=== PATIENT | female | born 1990 | race African-American/Black ===

== ENCOUNTER 2016-12-06 23:23 | Emergency (ER) | payer OTHER ==
[~2016-12-06] VITALS: Ht 165.1 cm; Wt 75.1 kg
[~2016-12-06 23:23] MED LIST: BIOT1CAP8 PO; CALC-51 PO; MISCCAP80 PO; MULT-506 PO; OMEG10007 PO
[2016-12-06 23:42] VITALS: TEMP 36.4; Ht 165.1 cm; Wt 75.1 kg
[2016-12-06] MEDS ORDERED: PSEUDOEPHEDRINE HCL 30 MG TAB PO STA (23:59)
[2016-12-07] MEDS ORDERED: DEXAMETHASONE SOD INJ 10 MG/ML VIAL PO ONE
[2016-12-07] MEDS ORDERED: OXYMETAZOLINE HCL 0.05% NA SPR 15 ML BTL ONE
[2016-12-07] MEDS ORDERED: FOLI1TAB7 PO (00:05)
[2016-12-07] MEDS ORDERED: BETA2500 PO (00:05)
[2016-12-07] MEDS ORDERED: ZINC30TA3 PO (00:05)
[2016-12-07] MEDS ORDERED: PRED50TA PO (00:08)
[2016-12-07] MEDS ORDERED: DOXY100C2 PO (00:08)
[2016-12-07 00:21] VITALS: BP 113/73; PULSE 87; O2SAT 98
--- NOTE | 2016-12-07 02:46 | EMERGENCY ROOM VISIT NOTE ---
History First contact with patient: 23:47 Chief Complaint: SINUS CONGESTION/PRESSURE Stated Complaint: SINUS DRAINAGE, SNEEZING, COUGH, SEVERE HEADACHE Nursing Triage Summary: Patient reports sinus congestion, cough, sneezing, and headache for 3-4 days. Patient states "I think it's a sinus infection." History of Present Illness The patient is a 26 year old female who presents to the Emergency Room with complaints of sinus pain and congestion with sinus headache and fever and chills with coughing for the past several days. No temperature was taken. Patient had sinus infections before and symptoms feel similar. Patient denies chest pain, dyspnea, neck stiffness, sore throat, abdominal pain, vomiting, diarrhea. She gets a rash from penicillin. No recent travel. Review of Systems See HPI for pertinent positives & negatives. A total of 10 systems reviewed and were otherwise negative. Past Medical/Surgical History Medical Problems: (1) No significant past medical history Surgical Problems: (1) No history of previous surgery Family History FH: diabetes mellitus FH: heart disease FH: hypertension Social History Smoking Status: Never Smoker Smokeless Tobacco Use: No Alcohol Use: occasionally Drug Use: none Marital Status: single Housing Status: lives with roommate Occupation Status: employed, [employer] student Current/Historical Medications Scheduled Beta Carotene (Beta Carotene), 1 CAP PO DAILY Doxycycline Hyclate (Vibramycin), 100 MG PO BID Folic Acid (Folvite), 1 MG PO DAILY Prednisone (Prednisone), 50 MG PO DAILY Probiotic Product (Probiotic), 1 CAP PO DAILY Zinc Gluconate (Zinc), 1 TAB PO DAILY Physical Exam Vital Signs Date Time Temp Pulse Resp B/P (MAP) Pulse Ox O2 Delivery O2 Flow Rate FiO2 12/07/16 00:21 87 18 113/73 98 12/06/16 23:42 36.4 87 18 111/78 99 Room Air Pain Rating (0-10): 0 Physical Exam VITALS: Vitals are noted on the nurse's note and reviewed by myself. Vital signs stable. GENERAL: Pleasant female, in no acute distress, nondiaphoretic, well-developed well-nourished. SKIN: The skin was without rashes, erythema, edema, or bruising. There is no tenting of the skin. Capillary reflex less than 2 seconds. HEAD: Normocephalic atraumatic. EARS: External auditory canals clear, tympanic membranes pearly horner without erythema or effusion bilaterally. EYES: Pupils equal round and reactive to light and accommodation. Conjunctivae without injection, sclerae without icterus. Extraocular movements intact. NOSE: Patent, turbinates without inflammation or discharge. Bilateral maxillary sinus tenderness. MOUTH: Mucous membranes moist. Pharynx without erythema or exudate. Uvula midline. Airway patent. Tongue does not deviate. NECK: Supple without nuchal rigidity. No lymphadenopathy. No thyromegaly. Cervical spine is nontender. No JVD. No meningeal signs HEART: Regular rate and rhythm without murmurs gallops or rubs. LUNGS: Clear to auscultation bilaterally without wheezes, rales or rhonchi. No dullness to percussion. No retractions or accessory muscle use. ABDOMEN: Positive bowel sounds x 4. Normal tympanic percussion. Soft, nontender, without masses or organomegaly. Duran sign negative. No guarding or rebound tenderness. MUSCULOSKELETAL: No muscle atrophy, erythema, or edema noted. NEURO: Patient was alert and oriented to person place and time. Normal sensation to light and sharp touch. No focal neurological deficits. Medical Decision & Procedures Medications Administered Medications (Trade) Dose Ordered Sig/Shane Route Start Time Stop Time Status Last Admin Dose Admin Dexamethasone Sodium Phosphate (Decadron Inj) 10 mg NOW ONCE PO 12/07/16 00:00 12/07/16 00:01 DC 12/07/16 00:16 10 MG Pseudoephedrine HCl (Sudafed Tab) 60 mg NOW STAT PO 12/06/16 23:59 12/07/16 00:01 DC 12/07/16 00:16 60 MG Oxymetazoline HCl (Afrin 0.05% Nasal [place]) 1 sprays NOW ONCE NA 12/07/16 00:00 12/07/16 00:01 DC 12/07/16 00:16 1 SPRAYS ED Course Prior records/ancillary studies reviewed. Triage Nursing notes reviewed. The patient's history was concerning for a cold symptoms Differential diagnosis: Etiologies such as sinusitis, viral syndrome, tonsillitis, streptococcal pharyngitis, mononucleosis, peritonsillar abscess, retropharyngeal abscess, otitis, pneumonia, influenza, as well as others were entertained. ER treatment provided: Decadron, Sudafed, Afrin On reassessment the patient felt better. Diagnostics interpreted by me: Deferred This appears to be consistent with acute sinusitis. she was started on antibiotics and symptoms have been persisting for nearly a week. She is advised to take decongestants and medications as directed. She is advised to follow-up health services in a few days or here in the ER sooner for headache, neck stiffness, lethargy, worsening signs or symptoms or as needed. By the evaluation outlined above emergent etiologies such as peritonsillar abscess, retropharyngeal abscess, otitis, pneumonia, meningitis, urinary tract infection , sepsis, bacteremia, as well as others were deemed relatively unlikely. The pt informed about the findings as listed above. All questions were answered and pleased with the treatment. Return instructions were outlined and the patient was discharged in stable condition. Outpatient prescription management: Doxycycline, prednisone Referral: The patient was referred back to their primary care physician for follow-up in 2 to 3 days for a recheck of the current condition. Medical Decision As above Medication Reconcilliation Current Medication List: was personally reviewed by me Blood Pressure Screening Patient's blood pressure: Normal blood pressure Impression Primary Impression: Sinusitis, acute maxillary Departure Information Dispostion Home / Self-Care Condition GOOD Prescriptions Prednisone (Prednisone) 50 Mg Tab 50 MG PO DAILY for 4 Days, #4 TAB Prov: Rae Tam .LAKSHMI 12/07/16 Doxycycline Hyclate (VIBRAMYCIN) 100 Mg Cap 100 MG PO BID for 10 Days, #20 CAP Prov: Rae Tam PA-C 12/07/16 Referrals No Doctor, Assigned [facility] (PCP) Forms WORK / SCHOOL INSTRUCTIONS, HOME CARE DOCUMENTATION FORM, Days off school: 2 School Instructions, IMPORTANT VISIT INFORMATION Patient Instructions Sinusitis Acute, My [facility] Additional Instructions Doxycycline 100mg: Take one pill twice daily for 10 days for your infection. Take with food, but avoid dairy. Avoid prolonged sun exposure since this medication makes you temporarily more susceptible to sunburns. All antibiotics can cause diarrhea. If this occurs and you feel worse or it does not resolve in 1-2 days follow up with your doctor or return to the Emergency Department as this could be signs of serious underlying problems. Any medication can cause an allergic reaction, stop the pills immediately and return to the ER for rash, hives, breathing difficulties, or swelling. Acetaminophen(Tylenol) may be used for fever or pain. Use 1000mg every six hours as needed. Avoid using more than 3000mg in a 24 hour period. (AND/OR) Ibuprofen(Motrin, Advil) may be used for fever or pain. Use 600mg every six hours as needed. Take with food. Avoid using more than 2400mg in a 24 hour period. Do not use 2400mg per day for more than three consecutive days without physician direction. Prolonged inappropriate use can lead to stomach upset or ulcers. Afrin nasal spray: 2-3 sprays to each nostril twice daily as needed for congestion. Do not use for more than 3-4 days because it can lead to worsening rebound congestion. Pseudoephedrine(Sudaphed): 30-60mg every 6 hours as needed for nasal congestion. Do not take this with other stimulant products or supplements. Rest and drink plenty of fluids. Controlling your fever with Tylenol and Ibuprofen as above will make you feel better. Wash your hands after nose blowing, sneezing, or coughing. Most germs are spread through contact, therefore improper hygiene may result in your close contacts and loved ones becoming ill just like you. Continue current medications. Return to the ER for severe headache, neck stiffness, chest pain, difficulty breathing, fevers, vomiting, worsening of your condition, or as needed. Follow up with your primary physician this week for a recheck of your current condition. Problem Qualifiers Primary Impression: Sinusitis, acute maxillary Recurrence: not specified as recurrent Qualified Codes: J01.00 - Acute maxillary sinusitis, unspecified
== END 2016-12-07 00:20 | disposition home or self-care (01) ==
LOC: C.EDB 12-07 00:05
DX: J01.00 Acute maxillary sinusitis, unspecified (principal); Z83.3 Family history of diabetes mellitus; Z82.49 Family history of ischemic heart disease and other diseases of the circulatory system; Z79.899 Other long term (current) drug therapy

== ENCOUNTER 2017-01-20 11:23 | Emergency (ER) | payer OTHER ==
[~2017-01-20] VITALS: Ht 165.1 cm; Wt 73.7 kg
[~2017-01-20 11:23] MED LIST changes: +BETA2500 PO; -BIOT1CAP8 PO; -CALC-51 PO; +DOXY100C2 PO; +FOLI1TAB7 PO; -MULT-506 PO; -OMEG10007 PO; +ZINC30TA3 PO
[2017-01-20 11:30] VITALS: TEMP 36.9; Ht 165.1 cm; Wt 73.7 kg
[2017-01-20] MEDS ORDERED: CLIN300C10 PO (12:50)
[2017-01-20 12:58] VITALS: BP 106/89; PULSE 57; O2SAT 98
--- NOTE | 2017-01-20 20:31 | EMERGENCY ROOM VISIT NOTE ---
ED Visit Note First contact with patient: 11:41 Chief Complaint: I'm having a sore throat. History of Present Illness: Ms. Weems is a 26-year-old black female who ambulates into the ED complaining of throat pain. Patient reports approximately 1.5 months ago she was diagnosed with maxillary sinusitis and finished a 10 day course of doxycycline. She goes on to report that last week she personally removed a "tonsil stone" from her left tonsil and that a coworker was recently diagnosed with strep throat. Patient reports for the last 3-4 days she has been having a gradual onset of throat pain. She reports initially it was mild. She describes her discomfort at rest as a mild achiness but become sharp with swallowing. She rates her discomfort 6/10. Her pain is nonradiating. Her pain worsens with swallowing. She has not identified any alleviating factors related to the pain. She has been using achz-lgz-[id number] medications irregularly with minimal relief of her discomfort. Associated with her pain she reports she's been having intermittent headaches but does not have a headache now, she has been nauseated but has not vomited, she is having painful swallowing, nonproductive cough, and at night her discomfort increases when she is trying to sleep and she has difficulty sleeping. She denies any associated fevers, chills, sweats, skin eruptions, skin color changes, dizziness, lightheadedness, visual changes, hearing changes, ear drainage, eye drainage, voice changes, difficulty speaking, difficulty swallowing, drooling, painful talking, neck pain/stiffness, shortness of breath , wheezing, abdominal pain, decreased appetite, joint pain/swelling. Review of Systems: As noted above in history of present illness. All body systems were reviewed and found to be negative as noted above. Past Medical History: As previously noted, unspecified skin disease. Current Medications: Probiotic, folate, beta-carotene, zinc. Allergies to Medications: Latex, penicillin. 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 Physical Examination: Vital Signs: Date Time Temp Pulse Resp B/P (MAP) Pulse Ox O2 Delivery O2 Flow Rate FiO2 01/20/17 12:58 57 16 106/89 98 01/20/17 11:30 36.9 58 18 105/62 97 Room Air GENERAL: 26-year-old female in mild distress due to pain, nontoxic-appearing, afebrile and hemodynamically stable. NEUROLOGICAL: Awake, alert and oriented to person, place and time. Answering questions appropriately and following commands. Normal gait. Good hand eye coordination. No focal motor sensory deficits. SKIN: Warm, dry and pink. No soft tissue eruptions or trauma noted. HEENT: Atraumatic and normocephalic. No tenderness or erythema over the frontal or maxillary sinuses. External ears are nontender. Auditory canals are pink and patent. Tympanic membranes are pearly horner with normal light reflex. PERRLA. Sclera white and conjunctiva pink without drainage. No drainage from naris without audible congestion. Oral cavity moist and pink. Airway is patent. Uvula is midline and no abscesses are seen. Pharynx is nonerythematous or edematous. Tonsils are mildly enlarged and there is a white exudative material over the superior aspects of the tonsils bilaterally. No lymphadenopathy. No laryngeal tenderness. BACK: No tenderness over the bony cervical and thoracic spine. No nuchal rigidity. Full range of motion of the cervical spine. THORAX: Lungs sounds are clear to auscultation and equal bilaterally with symmetrical chest wall. No wheezing, rales or rhonchi. ED Course: Patient is assessed as noted above. Patient's medication list was reviewed. Rapid Strep Screen: Negative. Culture pending. Patient was educated about today's findings and instructed on her treatment plan ; she verbalized understanding and agreement with this plan. Clinical Impression: Tonsillitis with exudate. Disposition: Patient discharged home in stable condition; prior to departure she was reassessed and subjectively reported she was feeling the same. Plan: Patient was encouraged to alternate ibuprofen and acetaminophen every 3 hours as needed for pain. Patient was encouraged use a liquid/mechanical soft diet and to continue her gargling with saltwater. Patient was encouraged stay well-hydrated with increased clear fluids. Patient was encouraged to consider a humidifier or vaporizer in her bedroom at night. Patient was given a prescription for clindamycin 300 mg 4 times a day; I encouraged her to hold off getting the prescription filled unless she had pain beyond 2 days or develop fevers. Patient was encouraged to follow-up at [facility] for recheck in 3-4 days. Patient was encouraged return ED for worsening/uncontrolled pain, inability to swallow, drooling, painful talking, fevers, vomiting, neck pain/stiffness, return of severe headaches or any new/concerning symptoms.
[2017-02-02] MEDS ORDERED: TRMO2580 TOP (00:07)
[2017-02-02] MEDS ORDERED: METR0.7510 PV (00:07)
== END 2017-01-20 13:00 | disposition home or self-care (01) ==
LOC: C.EDB 11:26 → C.EDD 13:00
DX: J03.90 Acute tonsillitis, unspecified (principal)

== ENCOUNTER 2017-04-20 18:11 | Emergency (ER) | payer OTHER ==
[~2017-04-20] VITALS: Ht 165.1 cm; Wt 72.0 kg
[~2017-04-20 18:11] MED LIST changes: -DOXY100C2 PO; -FOLI1TAB7 PO; +FOLI1TAB8 PO
[2017-04-20 18:14] VITALS: Ht 165.1 cm; Wt 72.0 kg
[2017-04-20] MEDS ORDERED: IBUPROFEN 600 MG TAB PO STA (20:15)
[2017-04-20 20:38] LABS: BASO % 0.5 %; BASO ABS # 0.03 K/uL (0-0.2); EOS % 6.2 %; EOS ABS # 0.37 K/uL (0-0.5); HEMATOCRIT 36.9 % (37-47); HEMOGLOBIN 12.8 g/dL (12.0-16.0); IG# 0.01 K/uL (0.00-0.02); LYMPH % 31.2 %; LYMPH ABS # 1.86 K/uL (1.2-3.4); MEAN CELL VOLUME 93.7 fL (80-100); MEAN CORPUSCULAR HEMOGLOBIN 32.5 pg (25-34); MEAN CORPUSCULAR HGB CONC 34.7 g/dl (32-36); MEAN PLATELET VOLUME 9.2 fL (7.4-10.4); MONO % 8.9 %; MONO ABS # 0.53 K/uL (0.11-0.59); NEUT ABS # 3.17 K/uL (1.4-6.5); PLATELET COUNT 264 K/uL (130-400); RED CELL DISTRIBUTION WIDTH CV 12.9 % (11.5-14.5); RED CELL DISTRIBUTION WIDTH SD 44.6 fL (36.4-46.3); WHITE BLOOD COUNT 5.97 K/uL (4.8-10.8)
--- NOTE | 2017-04-20 20:47 | DIAGNOSTIC IMAGING REPORT ---
TWO VIEW CHEST CLINICAL HISTORY: Cough. FINDINGS: PA and lateral chest radiographs are compared to study dated 06/18/2015. The cardiomediastinal silhouette is unremarkable. The lungs and pleural spaces are clear. There is no pneumothorax. The bony thorax appears intact. A right-sided nipple piercing is noted. IMPRESSION: No active disease in the chest. Electronically signed by: Girish Turner M.D. 04/20/2017 8:46 PM Dictated Date/Time: 04/20/2017 8:46 PM
[2017-04-20] MEDS ORDERED: ECHI1CAP PO (20:51)
[2017-04-20] MEDS ORDERED: ASCO500T3 PO (20:51)
[2017-04-20] MEDS ORDERED: LYSI500C2 PO (20:51)
[2017-04-20 20:55] LABS: CALCIUM 9.1 mg/dl (8.5-10.1); CREATININE 0.63 mg/dl (0.60-1.20); POTASSIUM 3.4 mmol/L (3.5-5.1)
[2017-04-20 21:27] LABS: INFLUENZA B ANTIGEN Neg for Influ B (NEG)
[2017-04-20] MEDS ORDERED: AZITHROMYCIN 250 MG TAB PO STA (21:27)
[2017-04-20] MEDS ORDERED: AZIT250T PO (21:33)
--- NOTE | 2017-04-20 21:35 | EMERGENCY ROOM VISIT NOTE ---
History First contact with patient: 20:08 Chief Complaint: HEADACHE Stated Complaint: CONGESTION, HEADACHE History of Present Illness The patient is a 26 year old female who presents to the Emergency Room with complaints of head congestion and cough. The patient states that approximately 2 weeks ago she started with a cough, sneezing and stuffy nose. She took some elbowed very cough syrup for about one week and was feeling better. She felt better for approximately 3 days then 5 days ago she started again with the same symptoms but they are worse. She is now coughing up yellow green sputum. She admits to a lot of head congestion and body aches. The patient states that she does not know if she had a fever but states that she was sweating the last 2 nights. The patient has not taken any Tylenol or ibuprofen. She has taken some Mucinex. The patient denies any sore throat. The patient states she feels fatigued. Review of Systems 10 system review was performed and was negative unless stated otherwise history of present illness. Past Medical/Surgical History Medical Problems: (1) No significant past medical history Surgical Problems: (1) No history of previous surgery Family History FH: diabetes mellitus FH: heart disease FH: hypertension Social History Smoking Status: Former Smoker Alcohol Use: occasionally Drug Use: none Marital Status: single Housing Status: lives with roommate Occupation Status: employed, [employer] student Current/Historical Medications Scheduled Ascorbic Acid (Vitamin C), 500 MG PO DAILY Beta Carotene (Beta Carotene), 25,000 INTER.UNIT PO DAILY Echinacea (Echinacea), 500 MG PO DAILY Folic Acid (Folvite), 1 MG PO DAILY Lysine (Lysine), 500 MG PO DAILY Probiotic Product (Probiotic), 1 CAP PO DAILY Zinc Gluconate (Zinc), 30 MG PO DAILY Physical Exam Vital Signs Date Time Temp Pulse Resp B/P (MAP) Pulse Ox O2 Delivery O2 Flow Rate FiO2 04/20/17 20:10 75 18 108/74 99 Room Air 04/20/17 18:14 36.7 63 16 114/74 100 Room Air Physical Exam PHYSICAL EXAM: Vital Signs were reviewed: Temperature 36.7, blood pressure 114/ 74, pulse 63, respirations 16 Reviewed Nurse's notes and agree. Oxygen saturation is 100 % on room air which is normal . GENERAL: 26-year-old female appears in no acute distress. MENTAL STATUS: Alert, oriented, coherent. EARS: Canals clear. TMs good light reflex, no erythema or fluid level noted. NOSE: Nasal mucosa with moderate erythema engorgement. PHARYNX: No erythema, no edema noted. No exudate noted. Airway is adequate. NECK: Supple, non-tender. No lymphadenopathy noted. LUNGS: Clear to auscultation without wheezes rales or rhonchi. CARDIAC: Regular rate and rhythm without murmur. SKIN: No rashes noted. Medical Decision & Procedures ER Provider Diagnostic Interpretation: TWO VIEW CHEST CLINICAL HISTORY: Cough. FINDINGS: PA and lateral chest radiographs are compared to study dated 06/18/2015. The cardiomediastinal silhouette is unremarkable. The lungs and pleural spaces are clear. There is no pneumothorax. The bony thorax appears intact. A right-sided nipple piercing is noted. IMPRESSION: No active disease in the chest. Electronically signed by: Girish Turner M.D. 04/20/2017 8:46 PM Dictated Date/Time: 04/20/2017 8:46 PM The status of this report is Signed. Draft = Not yet reviewed or approved by Radiologist. Signed = Reviewed and approved by Radiologist. Laboratory Results 04/20/17 20:25 Red Blood Count 3.94, Mean Corpuscular Volume 93.7, Mean Corpuscular Hemoglobin 32.5, Mean Corpuscular Hemoglobin Concent 34.7, Mean Platelet Volume 9.2, Neutrophils (%) (Auto) 53.0, Lymphocytes (%) (Auto) 31.2, Monocytes (%) (Auto) 8.9, Eosinophils (%) (Auto) 6.2, Basophils (%) (Auto) 0.5, Neutrophils # (Auto) 3.17, Lymphocytes # (Auto) 1.86, Monocytes # (Auto) 0.53, Eosinophils # (Auto) 0.37, Basophils # (Auto) 0.03 04/20/17 20:25 Test 04/20/17 20:06 04/20/17 20:25 Influenza Type A Antigen Neg for Influ A (NEG) Influenza Type B Antigen Neg for Influ B (NEG) White Blood Count 5.97 K/uL (4.8-10.8) Red Blood Count 3.94 M/uL (4.2-5.4) Hemoglobin 12.8 g/dL (12.0-16.0) Hematocrit 36.9 % (37-47) Mean Corpuscular Volume 93.7 fL (80-100) Mean Corpuscular Hemoglobin 32.5 pg (25-34) Mean Corpuscular Hemoglobin Concent 34.7 g/dl (32-36) Platelet Count 264 K/uL (130-400) Mean Platelet Volume 9.2 fL (7.4-10.4) Neutrophils (%) (Auto) 53.0 % Lymphocytes (%) (Auto) 31.2 % Monocytes (%) (Auto) 8.9 % Eosinophils (%) (Auto) 6.2 % Basophils (%) (Auto) 0.5 % Neutrophils # (Auto) 3.17 K/uL (1.4-6.5) Lymphocytes # (Auto) 1.86 K/uL (1.2-3.4) Monocytes # (Auto) 0.53 K/uL (0.11-0.59) Eosinophils # (Auto) 0.37 K/uL (0-0.5) Basophils # (Auto) 0.03 K/uL (0-0.2) RDW Standard Deviation 44.6 fL (36.4-46.3) RDW Coefficient of Variation 12.9 % (11.5-14.5) Immature Granulocyte % (Auto) 0.2 % Immature Granulocyte # (Auto) 0.01 K/uL (0.00-0.02) Anion Gap 6.0 mmol/L (3-11) Est Creatinine Clear Calc Drug Dose 134.6 ml/min Estimated GFR () 143.5 Estimated GFR (Non- 123.8 BUN/Creatinine Ratio 13.5 (10-20) Calcium Level 9.1 mg/dl (8.5-10.1) Medications Administered Medications (Trade) Dose Ordered Sig/Shane Route Start Time Stop Time Status Last Admin Dose Admin Ibuprofen (Motrin Tab) 600 mg NOW STAT PO 04/20/17 20:15 04/20/17 20:17 DC 04/20/17 20:24 600 MG ED Course The patient was evaluated. The patient's EMR medication list were reviewed. The patient was given Motrin 600 mg by mouth for bodyaches and headache. CBC and differential and renal profile was ordered. Labs are reviewed and were unremarkable. White count was normal. Chest x-ray was ordered interpreted by the radiologist as above without any acute findings. Rapid influenza was negative for influenza A and influenza B. The patient was informed of the findings. The patient was given Zithromax 500 mg by mouth while in the ER. The patient was discharged home in stable condition. Medical Decision Differential diagnosis include acute sinusitis, bronchitis, pneumonia, influenza [place] Drug Monitoring Program Search Results: patient reviewed within database Medication Reconcilliation Current Medication List: was personally reviewed by me Blood Pressure Screening Patient's blood pressure: Normal blood pressure Impression Primary Impression: Acute sinusitis Departure Information Dispostion Home / Self-Care Condition GOOD Prescriptions Azithromycin (Zithromax) 250 Mg Tab 250 MG PO DAILY for 4 Days, #4 TAB Prov: Cassidy Yoder PA-C 04/20/17 Referrals No Doctor, Assigned (PCP) Forms HOME CARE DOCUMENTATION FORM, IMPORTANT VISIT INFORMATION Patient Instructions ED Sinusitis Reanna Vaughan, My [facility] Additional Instructions Recommend [id number]-[id number] steroid nasal spray such as Flonase or Nasacort AQ daily. Push fluids. Tylenol and/or ibuprofen as needed for fever and body aches. Take Zithromax as prescribed. Continue Mucinex for an additional 5 days. If symptoms persist or worsen, follow-up with your family doctor. Problem Qualifiers Primary Impression: Acute sinusitis Sinusitis location: unspecified location Recurrence: not specified as recurrent Qualified Codes: J01.90 - Acute sinusitis, unspecified
[2017-04-20 22:05] VITALS: BP 110/61; PULSE 67; TEMP 36.6; O2SAT 97
== END 2017-04-20 22:05 | disposition home or self-care (01) ==
LOC: C.EDB 18:13
DX: J01.90 Acute sinusitis, unspecified (principal); Z83.3 Family history of diabetes mellitus; Z82.49 Family history of ischemic heart disease and other diseases of the circulatory system; Z87.891 Personal history of nicotine dependence; Z79.899 Other long term (current) drug therapy

== ENCOUNTER 2017-05-09 21:46 | Emergency (ER) | payer OTHER ==
[~2017-05-09] VITALS: Ht 165.1 cm; Wt 71.8 kg
[~2017-05-09 21:46] MED LIST changes: +ASCO500T3 PO; +ECHI1CAP PO; +LYSI500C2 PO
[2017-05-09 21:48] VITALS: TEMP 36.3; Ht 165.1 cm; Wt 71.8 kg
--- NOTE | 2017-05-09 22:31 | EMERGENCY ROOM VISIT NOTE ---
History Report prepared by Derrick: Darvin Patel Under the Supervision of: Dr. Sam Lang M.D. First contact with patient: 22:19 Chief Complaint: ABDOMINAL PAIN Stated Complaint: ABDOMINAL PAIN LOWER, VAGINAL DISCHARGE Nursing Triage Summary: Patient started on antibiotics about 3 weeks ago for sinus infections. Now c/o vaginal discharge that has been going on for past 2 weeks. Patient unable to get in to see OBGYN. Patient reports chronic yeast infections in the past. Patient also reports lower abd pain that started early this morning. Last BM today at 1500. Denies vomiting. Reports some nausea and decreased appetite. Noticed blood on toilet paper starting today. History of Present Illness The patient is a 26 year old female who presents to the Emergency Room with complaints of constant vaginal discharge beginning two weeks ago. The patient states that she has been taking azithromycin for a sinus infection for the past three weeks. She notes that she has had chronic yeast infections in the past. She reports that her vaginal discharge appears yeast-like. The patient states that she took Diflucan, but typically takes terconazole for her yeast infection symptoms. She notes that she does not believe that she is , but does not use control. She also complains of pain with intercourse, abdominal pain, and vaginal spotting. She denies any urinary symptoms, back pain, and changes in her bowel movements. She reports that she has a history of fibroids. Source of History: patient Onset: two weeks ago Position: other (vagina) Quality: other (discharge) Timing: constant Associated Symptoms: + abdominal pain, No back pain, No urinary symptoms Note: She also complains of pain with intercourse and vaginal spotting. She denies any changes in her bowel movements. Review of Systems See HPI for pertinent positives & negatives. A total of 10 systems reviewed and were otherwise negative. Past Medical & Surgical Medical Problems: (1) Fibroids (2) No significant past medical history (3) Sinus infection Surgical Problems: (1) No history of previous surgery Old medical records were reviewed. Nurse's notes were reviewed and I agree with. Family History FH: diabetes mellitus FH: heart disease FH: hypertension Social History Smoking Status: Never Smoker Alcohol Use: occasionally Drug Use: none Marital Status: single Housing Status: lives with roommate Occupation Status: employed, [employer] student Current/Historical Medications Scheduled Ascorbic Acid (Vitamin C), 500 MG PO DAILY Beta Carotene (Beta Carotene), 25,000 INTER.UNIT PO DAILY Echinacea (Echinacea), 500 MG PO DAILY Folic Acid (Folvite), 1 MG PO DAILY Lysine (Lysine), 500 MG PO DAILY Probiotic Product (Probiotic), 1 CAP PO DAILY Zinc Gluconate (Zinc), 30 MG PO DAILY Allergies Coded Allergies: Kiwi (Verified Allergy, Severe, MOUTH SWELLS, 05/09/17) Latex1 -Allergic Contact Dermititis (Verified Allergy, Intermediate, RASH , ITCHINESS, 05/09/17) Penicillins (Verified Allergy, Intermediate, RASH, 05/09/17) Physical Exam Vital Signs Date Time Temp Pulse Resp B/P (MAP) Pulse Ox O2 Delivery O2 Flow Rate FiO2 05/09/17 23:16 75 16 102/79 100 Room Air 05/09/17 21:48 36.3 80 20 109/71 100 Room Air Physical Exam General: Non-ill appearing young female in no acute distress. HEENT: Normal cephalic atraumatic. Pupils are equal round and reactive to light. Extraocular movements are intact. Oropharynx is pink with moist mucous membranes. No swelling of the mouth lips or tongue. Neck: Supple with a midline trachea. No meningeal signs or stiffness, no JVD or bruits. No Stridor. Chest: Clear to auscultation bilaterally. No wheezes or rhonchi. No increased work of breathing. Heart: regular rate and rhythm. Abdomen: Soft nontender, nondistended without rebound guarding or rigidity. Extremities: No cyanosis clubbing or edema. No calf tenderness or assymetry Spine/Back. Non tender to palpation. No CVA tenderness Skin: Good turgor without rashes. Neurologic exam: Cranial nerves two through 12 are intact. Motor and sensation are intact and symmetrical throughout. Pelvic (performed with a female nurse board writer present): Normal external female exam, normal cervix, there is a large amount of white chunky discharge, no cervical motion tenderness. Medical Decision & Procedures Laboratory Results Test 05/09/17 22:30 05/09/17 23:15 Urine Color YELLOW Urine Appearance CLEAR (CLEAR) Urine pH 5.5 (4.5-7.5) Urine Specific [place] 1.020 (1.000-1.030) Urine Protein NEG (NEG) Urine Glucose (UA) NEG (NEG) Urine Ketones TRACE (NEG) Urine Occult Blood NEG (NEG) Urine Nitrite NEG (NEG) Urine Bilirubin NEG (NEG) Urine Urobilinogen NEG (NEG) Urine Leukocyte Esterase MODERATE (NEG) Urine WBC (Auto) 5-10 /hpf (0-5) Urine RBC (Auto) 0-4 /hpf (0-4) Urine Hyaline Casts (Auto) 1-5 /lpf (0-5) Urine Epithelial Cells (Auto) >30 /lpf (0-5) Urine Bacteria (Auto) NEG (NEG) Urine Test NEG (NEG) Date/Time Source Procedure Growth Status 05/09/17 23:15 Cervix Swab Trichomonas Preparation - Final Complete Laboratory studies as stated above per my review. Medications Administered Medications (Trade) Dose Ordered Sig/Shane Route Start Time Stop Time Status Last Admin Dose Admin Terconazole (Terazol 7 Crm) 1 appln HS PV 05/10/17 21:00 05/10/17 21:00 DC 05/09/17 23:45 1 APPLN ED Course 2220: Past medical records reviewed. The patient was evaluated in room A11, and a complete history and physical examination were performed. Terconazole 1 appln PV. 2346: I performed a pelvic exam with a female nurse board writer present. 2330: I spoke to the pharmacy and they will send up terconazole cream. 2346: Upon reevaluation, the patient is stable. I discussed the results and treatment plan with her. She verbalized agreement of the treatment plan. The patient was discharged home. Medical Decision Differential diagnoses include: yeast infection, bacterial vaginosis, and PID. Patient comes in as described above she's had some vaginal discharge. She does free give frequent yeast infections which she says has to be treated with Terazosin. She had recent antibiotics for sinus symptoms she looks well on exam her abdomen is benign test was negative. Urinalysis is suboptimal but does not suggest a definite UTI. A backup culture is pending. Pelvic exam shows a discharge consistent with vaginal yeast. She's had nothing to suggest PID. We do have Terazosin here and I gave her a tube of it and she will use this once a day for 7 days. She will return if: increasing pain, worsening symptoms, any problems or concerns. She is happy the plan and discharged home. Medication Reconcilliation Current Medication List: was personally reviewed by me Blood Pressure Screening Patient's blood pressure: Normal blood pressure Blood pressure disposition: Did not require urgent referral Impression Primary Impression: Vaginal yeast infection Additional Impression: Vaginal discharge Scribe Attestation The scribe's documentation has been prepared under my direction and personally reviewed by me in its entirety. I confirm that the note above accurately reflects all work, treatment, procedures, and medical decision making performed by me. Departure Information Dispostion Home / Self-Care Referrals No Doctor, Assigned (PCP) Forms HOME CARE DOCUMENTATION FORM, IMPORTANT VISIT INFORMATION Patient Instructions My [facility] Additional Instructions Rest. Drink plenty of fluids. Use the vaginal terconazole cream for the next 7 days Return if: Increasing pain or bleeding, worsening symptoms, any new problems or concerns Problem Qualifiers
[2017-05-09 23:16] VITALS: BP 102/79; PULSE 75; O2SAT 100
[2017-05-10] MEDS ORDERED: TERCONAZOLE 0.4% CR 45 GM TUBE PV SCH (21:00)
== END 2017-05-09 23:46 | disposition home or self-care (01) ==
LOC: C.EDB 21:49 → C.EDA 23:46
DX: B37.3 Candidiasis of vulva and vagina (principal); Z79.899 Other long term (current) drug therapy; Z83.3 Family history of diabetes mellitus; Z82.49 Family history of ischemic heart disease and other diseases of the circulatory system

== ENCOUNTER 2017-07-04 00:25 | Emergency (ER) | payer OTHER ==
[~2017-07-04] VITALS: Ht 165.1 cm; Wt 69.9 kg
[2017-07-04 00:36] VITALS: TEMP 36.5; Ht 165.1 cm; Wt 69.9 kg
[2017-07-04] MEDS ORDERED: LORA10CA2 PO (01:28)
[2017-07-04 01:50] VITALS: BP 103/76; PULSE 60; O2SAT 100
--- NOTE | 2017-07-04 04:53 | EMERGENCY ROOM VISIT NOTE ---
History First contact with patient: 00:48 Chief Complaint: SKIN PROBLEM Stated Complaint: SKIN RASH/BREAKOUTS W ITCHING AND SWELLING History of Present Illness The patient is a 27 year old female who presents to the Emergency Room with complaints of itchy rash to her face neck and shoulders for the past few days has been intermittent for quite some time. Patient is worried that she has bedbugs. She states she flipped her mattress but did not see anything. No new food soaps or detergents. Patient denies chest pain, dyspnea, fever, chills, cough, congestion, numbness, tingling. No facial edema. She has not seen a arabic professor for this. Patient is afraid that something is biting her. Review of Systems An 10 system review of systems was completed with positives and pertinent negatives listed in the HPI. Past Medical/Surgical History Medical Problems: (1) Fibroids (2) No significant past medical history (3) Sinus infection Surgical Problems: (1) No history of previous surgery Family History FH: diabetes mellitus FH: heart disease FH: hypertension Social History Smoking Status: Never Smoker Alcohol Use: occasionally Drug Use: none Marital Status: single Housing Status: lives with roommate Occupation Status: employed, [employer] student Current/Historical Medications Scheduled Ascorbic Acid (Vitamin C), 500 MG PO DAILY Beta Carotene (Beta Carotene), 25,000 INTER.UNIT PO DAILY Echinacea (Echinacea), 500 MG PO DAILY Folic Acid (Folvite), 1 MG PO DAILY Loratadine (Claritin), 10 MG PO DAILY Lysine (Lysine), 500 MG PO DAILY Probiotic Product (Probiotic), 1 CAP PO DAILY Zinc Gluconate (Zinc), 30 MG PO DAILY Physical Exam Vital Signs Date Time Temp Pulse Resp B/P (MAP) Pulse Ox O2 Delivery O2 Flow Rate FiO2 07/04/17 01:50 60 16 103/76 100 07/04/17 00:36 36.5 59 18 109/74 96 Room Air Physical Exam VITALS: Vitals are noted on the nurse's note and reviewed by myself. Vital signs stable. GENERAL: Pleasant female tearful and anxious appearing, in no acute distress, nondiaphoretic, well-developed well-nourished. SKIN: Capillary reflex less than 2 seconds. Chin, anterior neck and bilateral shoulders with raised erythematous papules 2 mm in diameter without signs of marked bite so. No lymphangitis. They are blanchable. HEENT: Normocephalic. PERRLA. EOMI. Nares patent. Mucous membranes moist. Neck is supple without nuchal rigidity. HEART: Regular rate and rhythm without murmurs gallops or rubs. LUNGS: Clear to auscultation bilaterally without wheezes, rales or rhonchi. No retractions or accessory muscle use. ABDOMEN: Positive bowel sounds x 4. Normal tympanic percussion. Soft, nontender, without masses or organomegaly. Duran sign negative. No guarding or rebound tenderness. MUSCULOSKELETAL: No gross musculoskeletal defects. NEURO: Patient was alert and oriented to person place and time. Normal sensation to light and sharp touch. No focal neurological deficits. Medical Decision & Procedures Medications Administered Medications (Trade) Dose Ordered Sig/Shane Route Start Time Stop Time Status Last Admin Dose Admin Prednisone (PredniSONE TAB) 60 mg NOW STAT PO 07/04/17 01:24 07/04/17 01:25 DC 07/04/17 01:46 60 MG Diphenhydramine HCl (Benadryl Cap) 25 mg NOW ONCE PO 07/04/17 01:30 07/04/17 01:31 DC 07/04/17 01:46 25 MG Loratadine/ Pseudoephedrine Sulfate (Claritin-D 24 Hour Tab) 1 tab QAM PO 07/04/17 09:00 07/04/17 09:00 DC 07/04/17 01:46 1 TAB ED Course Prior records/ancillary studies reviewed. Triage Nursing notes reviewed. The patient's history was concerning for a rash. Differential diagnosis: Etiologies such as contact dermatitis, viral exanthem, urticaria, allergic reaction, Flores-Yonatan syndrome, toxic epidermal necrolysis, erythema multiforme, cellulitis, scabies, HSV, varicella, zoster, eczema, staph scalded skin syndrome, fungal infection, as well as others were entertained. Physical examination: Patient is alert and well-appearing ER treatment provided: Prednisone, Benadryl On reassessment the patient felt better. Diagnostic interpretation by me: Deferred The etiology for the patient's rash appears to be consistent with rash that has raised papules with a slightly erythematous and itchy. No obvious signs of scabies or bed bug bites. There is no lymphangitis or signs of infection. Patient was advised to try Claritin and to follow-up with the arabic professor if symptoms persist as this has been intermittent for quite some time she is advised to thoroughly clean her bed and to flip her mattress daily to see if there is any signs of bedbugs.. She is advised to follow-up health services in a few days or here in the ER sooner for chest pain, difficulty breathing, worsening signs or symptoms or as needed. By the evaluation outlined above emergent etiologies such as Flores-Yonatan syndrome, toxic epidermal necrolysis, erythema multiforme, cellulitis, scabies, HSV, varicella, zoster, staph scalded skin syndrome, urticaria, allergic reaction, as well as others were deemed relatively unlikely. The pt informed about the findings as listed above. All questions were answered and pleased with the treatment. Return instructions were outlined and the patient was discharged in stable condition. Outpatient prescription management: Claritin Referral: The patient was referred back to their primary care physician/[facility] for follow-up in 2-3 days for a recheck of the current condition. The chart was completed utilizing [employer] Speech voice recognition software. Grammatical errors, random word insertions, pronoun errors, and incomplete sentences are an occassional consequence of this system due to software limitations, ambient noise, and hardware issues. Any formal questions or concerns about the content, text, or information contained within the body of this dictation should be directly addressed to the physician trust operations assistant for clarification. Medical Decision as above Medication Reconcilliation Current Medication List: was personally reviewed by me Blood Pressure Screening Patient's blood pressure: Normal blood pressure Impression Primary Impression: Dermatitis Departure Information Dispostion Home / Self-Care Condition GOOD Prescriptions Loratadine (CLARITIN) 10 Mg Cap 10 MG PO DAILY for 30 Days, #30 CAP Prov: Rae Tam .LAKSHMI 07/04/17 Forms WORK / SCHOOL INSTRUCTIONS, HOME CARE DOCUMENTATION FORM, IMPORTANT VISIT INFORMATION Patient Instructions My [facility] Additional Instructions DO NOT drive, drink alcohol, operate machinery, or perform dangerous activities today. You were given medications in the ER that can affect your ability to safely function or operate a vehicle. Claritin 10 m tablet daily for itching rash. Diphenhydramine(Benadryl) 25mg: use 25 to 50 mg every six hours for swelling, itching, or hives. This medication is sedating and will cause drowsiness. Avoid alcohol, operating machinery or dangerous equipment, working on ladders or roofs, DRIVING, or situations where being under the influence may be dangerous. Benadryl is [id number]. Continue current medications. Return to the emergency department for worsening of your rash, swelling of your face, lips, tongue, or throat, difficulty breathing, vomiting, or as needed. Follow-up with your primary care physician in 2 to 3 days for a recheck of your current condition. Recommend dermatology referral.
[2017-07-04] MEDS ORDERED: LORATADINE/PSEUDOEPHEDRINE 1 TAB TABCR PO SCH (09:00)
== END 2017-07-04 01:50 | disposition home or self-care (01) ==
LOC: C.EDB 00:27
DX: L30.9 Dermatitis, unspecified (principal); D25.9 Leiomyoma of uterus, unspecified; Z83.3 Family history of diabetes mellitus; Z82.49 Family history of ischemic heart disease and other diseases of the circulatory system

== ENCOUNTER 2017-11-19 21:10 | Emergency (ER) | payer OTHER ==
[~2017-11-19] VITALS: Ht 165.1 cm; Wt 71.3 kg
[~2017-11-19 21:10] MED LIST changes: +ASCA500 PO; -ASCO500T3 PO; +AZIT500T26 PO; +CIPR-255 PO; -ECHI1CAP PO; +FLUC150T PO; -LYSI500C2 PO; -MISCCAP80 PO; +MULT-506 PO; +VNTHFA/IN INH; -ZINC30TA3 PO
[2017-11-19 21:13] VITALS: TEMP 36.7; Ht 165.1 cm; Wt 71.3 kg
[2017-11-19 22:01] LABS: BASO % 0.4 %; BASO ABS # 0.02 K/uL (0-0.2); EOS % 1.7 %; EOS ABS # 0.09 K/uL (0-0.5); HEMATOCRIT 39.6 % (37-47); HEMOGLOBIN 13.2 g/dL (12.0-16.0); IG# 0.01 K/uL (0.00-0.02); LYMPH % 49.3 %; LYMPH ABS # 2.62 K/uL (1.2-3.4); MEAN CELL VOLUME 95.2 fL (80-100); MEAN CORPUSCULAR HEMOGLOBIN 31.7 pg (25-34); MEAN CORPUSCULAR HGB CONC 33.3 g/dl (32-36); MEAN PLATELET VOLUME 9.6 fL (7.4-10.4); MONO % 9.8 %; MONO ABS # 0.52 K/uL (0.11-0.59); NEUT % 38.6 %; NEUT ABS # 2.05 K/uL (1.4-6.5); PLATELET COUNT 253 K/uL (130-400); RED CELL DISTRIBUTION WIDTH CV 13.1 % (11.5-14.5); RED CELL DISTRIBUTION WIDTH SD 45.1 fL (36.4-46.3); WHITE BLOOD COUNT 5.31 K/uL (4.8-10.8)
[2017-11-19 22:22] LABS: ALBUMIN 3.7 gm/dl (3.4-5.0); CALCIUM 8.7 mg/dl (8.5-10.1); CREATININE 0.79 mg/dl (0.60-1.20); POTASSIUM 3.3 mmol/L (3.5-5.1); TOTAL PROTEIN 7.6 gm/dl (6.4-8.2)
[2017-11-19] MEDS ORDERED: POTASSIUM CHLORIDE 10 MEQ TABCR PO STA (22:29)
[2017-11-19 23:09] VITALS: PULSE 59
[2017-11-19] MEDS ORDERED: METRONIDAZOLE 250 MG TAB PO STA (23:54)
[2017-11-20] MEDS ORDERED: DOXYCYCLINE HYCLATE 100 MG CAP PO ONE
[2017-11-20] MEDS ORDERED: DOXY100C2 PO (00:03)
[2017-11-20] MEDS ORDERED: METR-163 PO (00:03)
[2017-11-20] MEDS ORDERED: FLUC150T PO (00:28)
[2017-11-20 00:37] VITALS: BP 108/60; O2SAT 98
--- NOTE | 2017-11-20 02:51 | EMERGENCY ROOM VISIT NOTE ---
History First contact with patient: 21:23 Chief Complaint: PELVIC PAIN Stated Complaint: ABDOMINAL PAIN, DISCHARGE, NAUSEA History of Present Illness The patient is a 27 year old female who presents to the Emergency Room with complaints of vaginal discharge with abdominal cramping and nausea for the past few days who just finished Flagyl and doxycycline for Ureaplasma infection. Patient denies risk for STI's. She describes pain as cramping, ranging severity 3 out of 10 to the suprapubic region. Patient denies chest pain, dyspnea, vomiting, diarrhea, back pain, flank pain, urinary symptoms, rashes. She states this does not feel like a yeast infection. She states she does need Diflucan if she gets antibiotics. Review of Systems An 10 system review of systems was completed with positives and pertinent negatives listed in the HPI. Past Medical/Surgical History Medical Problems: (1) Fibroids (2) No significant past medical history (3) Sinus infection Surgical Problems: (1) No history of previous surgery Family History FH: diabetes mellitus FH: heart disease FH: hypertension Social History Smoking Status: Never Smoker Alcohol Use: occasionally Drug Use: none Marital Status: single Housing Status: lives with roommate Occupation Status: employed, [employer] student Current/Historical Medications Scheduled Albuterol Hfa (Ventolin Hfa), 3 PUFFS INH Q6H Ascorbic Acid (Vitamin C), 1 TAB PO BID Beta Carotene (Beta Carotene), 1 CAP PO DAILY Doxycycline Hyclate (Vibramycin), 100 MG PO BID Fluconazole (Diflucan), 150 MG PO DIRECTED Folic Acid (Folvite), 1 MG PO DAILY Metronidazole (Flagyl), 500 MG PO BID Multivitamin (Multivitamin), 1 TAB PO DAILY Physical Exam Vital Signs Date Time Temp Pulse Resp B/P (MAP) Pulse Ox O2 Delivery O2 Flow Rate FiO2 11/20/17 00:37 60 108/60 98 11/19/17 23:09 59 18 107/49 100 Room Air 11/19/17 21:13 36.7 59 18 107/70 100 Room Air Physical Exam VITALS: Vitals are noted on the nurse's note and reviewed by myself. Vital signs reviewed. GENERAL: Pleasant name, in no acute distress, nondiaphoretic, well-developed well-nourished. SKIN: The skin was without rashes, erythema, edema, or bruising. There is no tenting of the skin. Capillary reflex less than 2 seconds. HEAD: Normocephalic atraumatic. EARS: External auditory canals clear, tympanic membranes pearly horner without erythema or effusion bilaterally. EYES: Pupils equal round and reactive to light and accommodation. Conjunctivae without injection, sclerae without icterus. Extraocular movements intact. NOSE: Patent, turbinates without inflammation or discharge. MOUTH: Mucous membranes moist. Pharynx without erythema or exudate. Uvula midline. Airway patent. Tongue does not deviate. NECK: Supple without nuchal rigidity. No lymphadenopathy. No thyromegaly. Cervical spine is nontender. No JVD. HEART: Regular rate and rhythm without murmurs gallops or rubs. LUNGS: Clear to auscultation bilaterally without wheezes, rales or rhonchi. No retractions or accessory muscle use. ABDOMEN: Positive bowel sounds x 4. Normal tympanic percussion. Soft, minimally tender suprapubic region, without masses or organomegaly. Duran sign negative. No guarding or rebound tenderness. No CVA tenderness exam: Normal external female genitalia, white discharge in the vault, no CMT or adnexal tenderness. No odor. Brand Ambassador Promotional Model present. Cultures taken and sent. MUSCULOSKELETAL: No muscle atrophy, erythema, or edema noted. NEURO: Patient was alert and oriented to person place and time. Normal sensation to light and sharp touch. No focal neurological deficits. Medical Decision & Procedures Laboratory Results 11/19/17 21:45 Red Blood Count 4.16, Mean Corpuscular Volume 95.2, Mean Corpuscular Hemoglobin 31.7, Mean Corpuscular Hemoglobin Concent 33.3, Mean Platelet Volume 9.6, Neutrophils (%) (Auto) 38.6, Lymphocytes (%) (Auto) 49.3, Monocytes (%) (Auto) 9.8, Eosinophils (%) (Auto) 1.7, Basophils (%) (Auto) 0.4, Neutrophils # (Auto) 2.05, Lymphocytes # (Auto) 2.62, Monocytes # (Auto) 0.52, Eosinophils # (Auto) 0.09, Basophils # (Auto) 0.02 11/19/17 21:45 Test 11/19/17 21:40 11/19/17 21:45 11/19/17 22:10 Urine Color DK YELLOW Urine Appearance CLOUDY (CLEAR) Urine pH 6.5 (4.5-7.5) Urine Specific [place] 1.026 (1.000-1.030) Urine Protein NEG (NEG) Urine Glucose (UA) NEG (NEG) Urine Ketones TRACE (NEG) Urine Occult Blood NEG (NEG) Urine Nitrite NEG (NEG) Urine Bilirubin NEG (NEG) Urine Urobilinogen NEG (NEG) Urine Leukocyte Esterase MODERATE (NEG) Urine WBC (Auto) 5-10 /hpf (0-5) Urine RBC (Auto) 0-4 /hpf (0-4) Urine Hyaline Casts (Auto) 1-5 /lpf (0-5) Urine Epithelial Cells (Auto) >30 /lpf (0-5) Urine Bacteria (Auto) NEG (NEG) Urine Test NEG (NEG) White Blood Count 5.31 K/uL (4.8-10.8) Red Blood Count 4.16 M/uL (4.2-5.4) Hemoglobin 13.2 g/dL (12.0-16.0) Hematocrit 39.6 % (37-47) Mean Corpuscular Volume 95.2 fL (80-100) Mean Corpuscular Hemoglobin 31.7 pg (25-34) Mean Corpuscular Hemoglobin Concent 33.3 g/dl (32-36) Platelet Count 253 K/uL (130-400) Mean Platelet Volume 9.6 fL (7.4-10.4) Neutrophils (%) (Auto) 38.6 % Lymphocytes (%) (Auto) 49.3 % Monocytes (%) (Auto) 9.8 % Eosinophils (%) (Auto) 1.7 % Basophils (%) (Auto) 0.4 % Neutrophils # (Auto) 2.05 K/uL (1.4-6.5) Lymphocytes # (Auto) 2.62 K/uL (1.2-3.4) Monocytes # (Auto) 0.52 K/uL (0.11-0.59) Eosinophils # (Auto) 0.09 K/uL (0-0.5) Basophils # (Auto) 0.02 K/uL (0-0.2) RDW Standard Deviation 45.1 fL (36.4-46.3) RDW Coefficient of Variation 13.1 % (11.5-14.5) Immature Granulocyte % (Auto) 0.2 % Immature Granulocyte # (Auto) 0.01 K/uL (0.00-0.02) Anion Gap 7.0 mmol/L (3-11) Est Creatinine Clear Calc Drug Dose 105.9 ml/min Estimated GFR () 118.9 Estimated GFR (Non- 102.6 BUN/Creatinine Ratio 10.5 (10-20) Calcium Level 8.7 mg/dl (8.5-10.1) Magnesium Level 1.8 mg/dl (1.8-2.4) Total Bilirubin 0.6 mg/dl (0.2-1) Direct Bilirubin 0.2 mg/dl (0-0.2) Aspartate Amino Transf (AST/SGOT) 16 U/L (15-37) Alanine Aminotransferase (ALT/SGPT) 18 U/L (12-78) Alkaline Phosphatase 55 U/L (45-117) Total Protein 7.6 gm/dl (6.4-8.2) Albumin 3.7 gm/dl (3.4-5.0) Medications Administered Medications (Trade) Dose Ordered Sig/Shane Route Start Time Stop Time Status Last Admin Dose Admin Potassium Chloride (Klor-Con M10) 20 meq NOW STAT PO 11/19/17 22:29 11/19/17 22:30 DC 11/19/17 23:40 20 MEQ ED Course Prior records/ancillary studies reviewed. Triage Nursing notes reviewed.. The patient's history was concerning for vaginal discharge and suprapubic cramping Differential diagnosis: Etiologies such as vaginitis, vaginosis, trichomonas, Ureaplasma, candidiasis, STI, cyst, torsion, , PID, ectopic , infection, as well as others were entertained. Physical examination: As above. Vitals signs revealed stable. ER treatment provided: Flagyl, doxycycline, Diflucan to go On reassessment the patient felt better. Diagnostic interpretation by me: The labs revealed negative hCG. Stable H&H. No leukocytosis Urine test was negative. Urinalysis revealed no sign of infection. Negative swab for yeast infection. GC chlamydia pending RUN DATE: 11/19/17 [facility] PAGE 1 RUN TIME: 2248 Specimen Inquiry PATIENT: BRIANA BARR LOC: NAA U # : [id number] AGE/SX: 27/F ROOM: REG : 11/19/[address]: Mark Little DO : 1990 BED: DIS : STATUS: REG ER TLOC: SPEC #: [id number] NATALYA: 11/19/17 STATUS: RES REQ #: [id number] RECD: 11/19/[address]: Rae Tam PA-C SOURCE: GEN GAYTAN ENTR: 11/19/[address]: Mark Little DO [facility]: [facility] ORDERED: CHASE LUKAS CU/SMR COMMENTS: Has Specimen Been Obtained/Collected? Y Procedure Result Verified Site GRAM STAIN Preliminary 11/19/17-2248 RESULT FEW WBCs SEEN FEW EPITHELIAL CELLS MODERATE GRAM POSITIVE COCCI MODERATE GRAM VARIABLE BACILLI RARE CLUE CELLS SEEN GENITAL CULTURE FEMALE PENDING Imaging studies: Ultrasound as above US PELVIC/ENDOVAG: Uterine fibroids measure 5.2 and 0.5 cm 1.8 cm right ovarian cyst Free fluid adjacent to the left ovary and within the cul-de-sac No evidence for ovarian torsion No endometrial thickening. Possible abnormal endometrial vascularity. A focal lesion is not seen. Follow-up is advised. Radiologist: Alex Abraham MD Study ready at 23:18 and initial results transmitted This appears to be consistent with vaginal drainage that patient reports is similar to when she saw her OB doctor and was treated with doxycycline and Flagyl for your Ureaplasma and gardnerella infection. She states she was informed by her VETERINARY SURGEON back in [place] that she might need a second treatment with antibiotics. This is given to her. She was informed though that her ultrasound was abnormal and to see VETERINARY SURGEON for further evaluation and treatment for this. She was given the referral information to VETERINARY SURGEON. She was advised to call this morning to make a follow-up this week. She verbalized understanding this. She requested Diflucan prescription to take after she finished antibiotics. This is given to her. Patient did not have acute abdomen on exam. Repeat abdominal exam was benign. She was afebrile and nontoxic. She had no CMT tenderness. No signs of PID. She is advised to return to the ER immediately for fevers, pain, vomiting, worsening signs or symptoms or as needed. By the evaluation outlined above emergent etiologies such as , UTI, as well as others were deemed relatively unlikely. Patient denied risk for STI's. She had no yellow frothy discharge and no odor. She had no CMT tenderness. No signs of cervicitis. The pt informed about the findings as listed above. All questions were answered and pleased with the treatment. Return instructions were outlined and the patient was discharged in stable condition. Outpatient prescription management: Doxycycline, Flagyl Referral: The patient was referred to VETERINARY SURGEON for follow-up in 2 to 3 days for a recheck of her current condition. Case reviewed with my attending The chart was completed utilizing [employer] Speech voice recognition software. Grammatical errors, random word insertions, pronoun errors, and incomplete sentences are an occassional consequence of this system due to software limitations, ambient noise, and hardware issues. Any formal questions or concerns about the content, text, or information contained within the body of this dictation should be directly addressed to the physician career services assistant for clarification. Medical Decision As above Medication Reconcilliation Current Medication List: was personally reviewed by me Blood Pressure Screening Patient's blood pressure: Normal blood pressure Impression Primary Impression: Vaginal discharge Additional Impression: Hypokalemia Departure Information Dispostion Home / Self-Care Condition GOOD Prescriptions Fluconazole (DIFLUCAN) 150 Mg Tab 150 MG PO DIRECTED, #1 TAB Prov: Rae Tam .LAKSHMI 11/20/17 Doxycycline Hyclate (VIBRAMYCIN) 100 Mg Cap 100 MG PO BID for 14 Days, #28 CAP Prov: Rae Tam PA-C 11/20/17 Metronidazole (Flagyl) 500 Mg Tab 500 MG PO BID for 7 Days, #14 TAB Prov: Rae Tam .LAKSHMI 11/20/17 Referrals Yehuda Nesbitt M.D. Forms WORK / SCHOOL INSTRUCTIONS, HOME CARE DOCUMENTATION FORM, IMPORTANT VISIT INFORMATION Patient Instructions My [facility] Additional Instructions Metronidazole(Flagyl) 500mg: Take one pill 2 times daily for 7 days for your infection. DO NOT drink alcohol or take alcohol containing products with this medication. Any medication can cause an allergic reaction, stop the pills immediately and return to the ER for rash, hives, breathing difficulties, or swelling. Doxycycline 100mg: Take one pill twice daily for 14 days for your infection. Take with food, but avoid dairy. Avoid prolonged sun exposure since this medication makes you temporarily more susceptible to sunburns. All antibiotics can cause diarrhea. If this occurs and you feel worse or it does not resolve in 1-2 days follow up with your doctor or return to the Emergency Department as this could be signs of serious underlying problems. Any medication can cause an allergic reaction, stop the pills immediately and return to the ER for rash, hives, breathing difficulties, or swelling. Acetaminophen(Tylenol) may be used for fever or pain. Use 1000mg every six hours as needed. Avoid using more than 3000mg in a 24 hour period. AND/OR Ibuprofen(Motrin, Advil) may be used for fever or pain. Use 600mg every six hours as needed. Take with food. Avoid using more than 2400mg in a 24 hour period. Do not use 2400mg per day for more than three consecutive days without physician direction. Prolonged inappropriate use can lead to stomach upset or ulcers. Rest and drink plenty of fluids as tolerated. Continue current medications. Recommend no intercourse until symptoms clear up. Return to the ER immediately for worsening or persistent vaginal pain, vaginal discharge, abdominal pain, vomiting, fevers, chest pains, difficulty breathing, worsening of your condition, or as needed. Follow up with VETERINARY SURGEON in 2-3 days for a recheck of your current condition. Call for an appointment. Problem Qualifiers
--- NOTE | 2017-11-20 06:53 | DIAGNOSTIC IMAGING REPORT ---
TRANSVAG-FEMALE PELVIS HISTORY: 27 years-old Female pelvic pain/DC acute pelvic pain with vaginal discharge COMPARISON: Pelvic ultrasound and CT study 12/17/2015 TECHNIQUE: Multiple real-time sonographic images of the deep pelvic structures were obtained transabdominally and transvaginally assessing grayscale appearance, color and spectral flow FINDINGS: TRANSABDOMINAL: Anteflexed uterus measures 9.6 x 5.0 x 5.8 cm and appears heterogeneous. Endometrium measures 9 mm in thickness. There are several mixed echogenicity heterogeneous lesions about the uterus including an intramural upper uterine body/fundal fibroid measuring 5.2 x 4.7 x 4.6 cm with internal vascularity. There is a smaller hypoechoic intramural 0.5 cm fibroid of the mid uterine body. Ovaries appear unremarkable with arterial inflow documented. TRANSVAGINAL: Normal-appearing endometrium measures 1.0 cm. Follicular changes are noted about the ovaries with a 1.8 cm dominant right ovarian follicle. Arterial inflow and venous outflow is documented to the bilateral ovaries. Trace free pelvic fluid is noted adjacent to the left adnexum and also within the cul-de-sac. IMPRESSION: 1. Fibroid uterus with intramural leiomyomata as detailed above. 2. Unremarkable sonographic appearance of the ovaries without evidence of torsion. 3. Mild free pelvic fluid is likely physiologic. The above report was generated using voice recognition software. It may contain grammatical, syntax or spelling errors. Electronically signed by: Delgado Byrd M.D. 11/20/2017 6:52 AM Dictated Date/Time: 11/20/2017 6:47 AM
--- NOTE | 2017-11-20 13:28 | Pharmacy Progress Note ---
ED Pharmacist Culture FollowUp Date of Service: Nov 20, 2017. Direct prep vaginal swab: no yeast or hyphae seen Gram stain: rate clue cells seen, mod gm + cocci and mod gm - variable bacilli Genital cx pending Negative trichomonas chlamydia and gonorrhoeae serologies are pending Pt was treated w/ Flagyl 500mg PO BID x 7 days (appropriate for bacterial vaginosis) as well as doxycycline 100mg PO BID x 14 days (STI coverage and PID coverage) as well as Diflucan 150mg PO x 1 for possible yeast infxn. Based upon current cx results, no changes in therapy warranted.
--- NOTE | 2017-11-22 16:24 | Pharmacy Progress Note ---
ED Pharmacist Culture FollowUp Date of Service: Nov 22, 2017. Direct vaginal swab results from 11/20 which were read as "no yeast or hyphae" are now changed to "rare yeast seen" today Latanya albican moderate qnty are reported on final ID Gram stain: rate clue cells seen, mod gm + cocci and mod gm - variable bacilli Negative trichomonas chlamydia and gonorrhoeae serologies negative Pt was treated w/ Flagyl 500mg PO BID x 7 days (appropriate for bacterial vaginosis) as well as doxycycline 100mg PO BID x 14 days (STI coverage and PID coverage) as well as Diflucan 150mg PO x 1 for possible yeast infxn. Based upon current cx results, no changes in therapy warranted.
== END 2017-11-20 00:37 | disposition home or self-care (01) ==
LOC: C.EDB 21:12
DX: N89.8 Other specified noninflammatory disorders of vagina (principal); E87.6 Hypokalemia; R93.8 Abnormal findings on diagnostic imaging of other specified body structures